=== PATIENT | female | born 1940 | race Caucasian/White ===

== ENCOUNTER 2020-02-20 17:25 | Emergency (ER) | payer OTHER, MEDICAID ==
[~2020-02-20] VITALS: Ht 152.4 cm; Wt 84.8 kg
[2020-02-20 17:40] VITALS: Ht 152.4 cm; Wt 84.8 kg
[2020-02-20 23:05] VITALS: BP 214/68
== END 2020-02-20 23:05 | disposition home or self-care (01) ==
LOC: ED 17:25
DX: S81.812A Laceration without foreign body, left lower leg, initial encounter (principal); I87.2 Venous insufficiency (chronic) (peripheral); W22.8XXA Striking against or struck by other objects, initial encounter; Y93.89 Activity, other specified; Y92.89 Other specified places as the place of occurrence of the external cause; Y99.8 Other external cause status

== ENCOUNTER 2020-02-23 15:42 | Emergency (ER) | payer OTHER, MEDICAID ==
[~2020-02-23] VITALS: Ht 152.4 cm; Wt 77.1 kg
[2020-02-23 15:58] VITALS: BP 206/80; Ht 152.4 cm; Wt 77.1 kg
== END 2020-02-23 16:47 | disposition home or self-care (01) ==
LOC: ED 15:42
DX: S89.92XD Unspecified injury of left lower leg, subsequent encounter (principal); I10 Essential (primary) hypertension; E11.9 Type 2 diabetes mellitus without complications; Z88.8 Allergy status to other drugs, medicaments and biological substances; Z88.2 Allergy status to sulfonamides; X58.XXXD Exposure to other specified factors, subsequent encounter

== ENCOUNTER 2020-02-23 18:51 | Emergency (ER) | payer OTHER, MEDICAID ==
[~2020-02-23] VITALS: Ht 167.6 cm; Wt 90.7 kg
[2020-02-23 20:14] LABS: BASOPHIL % 0.8 % (0.2-1.3); PLATELET COUNT 196 x10^3mcL (179-408)
[2020-02-23 20:17] LABS: RED CELL DISTRIBUTION WIDTH 15.8 % (12.3-17.7)
[2020-02-23 20:18] LABS: rbc morphology (normal/abnorm) NORMAL (NORMAL)
[2020-02-23 20:30] VITALS: Ht 167.6 cm; Wt 90.7 kg
[2020-02-23 20:38] LABS: ALBUMIN 3.4 g/dL (3.4-5.0); ALKALINE PHOSPHATASE 97 U/L (46-116); ALT/SGPT 20 U/L (14-59); AST/SGOT 18 U/L (15-37); BILIRUBIN TOTAL 0.4 mg/dL (0.20-1.00); CALCIUM 9.3 mg/dL (8.5-10.1); CARBON DIOXIDE 27.9 mmol/L (21-32); CHLORIDE SERUM 97 mmol/L (98-107); GLUCOSE SERUM 245 mg/dL (74-106); POTASSIUM SERUM 4.3 mmol/L (3.5-5.1); SODIUM SERUM 137 mmol/L (136-145); TOTAL PROTEIN, SERUM 6.7 g/dL (6.4-8.2)
[2020-02-23 23:51] LABS: microscopic required? YES; urine erythrocyte 2+ (NEGATIVE)
[2020-02-24 01:15] VITALS: BP 168/90
== END 2020-02-24 01:15 | disposition short-term general hospital (02) ==
LOC: ED 18:51
PROVIDERS: Emergency Medicine
DX: S81.812D Laceration without foreign body, left lower leg, subsequent encounter (principal); R55 Syncope and collapse; I10 Essential (primary) hypertension; E11.9 Type 2 diabetes mellitus without complications; Z88.2 Allergy status to sulfonamides; Z91.041 Radiographic dye allergy status; Z20.828 Contact with and (suspected) exposure to other viral communicable diseases; X58.XXXD Exposure to other specified factors, subsequent encounter